=== PATIENT | male | born 1970 | race Asian ===

== ENCOUNTER 2018-06-19 22:10 | Emergency (ER) | payer BC ==
[~2018-06-19] VITALS: Ht 170.2 cm; Wt 524.4 kg
[2018-06-19 23:28] LABS: microscopic required? NO
[2018-06-19 23:41] LABS: CALCIUM 8.8 mg/dL (8.5-10.1); CARBON DIOXIDE 21.2 mmol/L (21-32); CHLORIDE SERUM 102 mmol/L (98-107); CREATININE SERUM 1.1 mg/dL (0.7-1.3); GFR1 > 60 mL/min; GLUCOSE SERUM 126 mg/dL (74-106); POTASSIUM SERUM 3.5 mmol/L (3.5-5.1); SODIUM SERUM 139 mmol/L (136-145)
[2018-06-19 23:55] LABS: ALBUMIN 4.4 g/dL (3.4-5.0); ALKALINE PHOSPHATASE 73 U/L (46-116); ALT/SGPT 23 U/L (16-63); AST/SGOT 15 U/L (15-37); BILIRUBIN TOTAL 0.8 mg/dL (0.20-1.00); FREE T4 1.18 ng/dL (0.76-1.46); LIPASE 72 IU/L (73-393); TOTAL PROTEIN, SERUM 7.3 g/dL (6.4-8.2)
[2018-06-19 23:57] LABS: urine erythrocyte NEGATIVE (NEGATIVE)
[2018-06-20 00:06] LABS: BASOPHIL % 0.1 % (0-2); PLATELET COUNT 220 x10^3mcL (130-400); RED CELL DISTRIBUTION WIDTH 12.1 % (11.5-14.5)
[2018-06-20 00:38] LABS: AMPHETAMINE QUAL UR NONE DETECTED (See below)
[2018-06-20 02:50] VITALS: BP 124/85
== END 2018-06-20 03:31 | disposition left against medical advice (07) ==
LOC: ED 22:10
PROVIDERS: Emergency Medicine
DX: R55 Syncope and collapse (principal); Z88.0 Allergy status to penicillin; E11.9 Type 2 diabetes mellitus without complications
CPT/HCPCS: 36415; 83880; 84439; 85378; G0480; Q0092